=== PATIENT | male | born 1975 | race Caucasian/White ===

== ENCOUNTER 2016-12-20 16:19 | Outpatient (CLI) | payer OTHER ==
--- NOTE | 2016-12-20 18:53 | RAD ---
LEFT ELBOW 12/20/16 AP and lateral views are provided. Soft tissue swelling is seen over the olecranon consistent with t he clinical history of olecranon bursitis. There is ossification of the insertion of the triceps ten don on the olecranon which could signify prior tendinous injury or tendonitis. There are also a few bony densities seen at the tip of the coronoid process of the ulna. This could be due to old injury as well. There is no sign of joint effusion. IMPRESSION: Ossification of the insertion of the triceps tendon on the olecranon. POS: HOME
== END 2016-12-20 16:20 | disposition home or self-care (01) ==
LOC: BURRAD 16:19
PROVIDERS: ATTEND Family Medicine
DX: M70.22 Olecranon bursitis, left elbow (principal)